=== PATIENT | female | born 1995 | race Caucasian/White ===

== ENCOUNTER 2018-08-05 20:00 | Outpatient (CLI) | payer OTHER ==
[2018-08-05 20:14] VITALS: BP 131/81
[2018-08-05 20:47] LABS: RUPTURE OF MEMBRANES PLUS NEGATIVE (NEGATIVE)
== END 2018-08-05 21:05 | disposition home or self-care (01) ==
LOC: WFO 20:00 → FBP 20:02 → WFO 21:05
PROVIDERS: ATTEND Obstetrics & Gynecology
DX: Z34.03 Encounter for supervision of normal first pregnancy, third trimester (principal)
CPT/HCPCS: 84112; 99213